=== PATIENT | female | born 1950 ===

== ENCOUNTER → 2017-08-16 | Outpatient (CLI) | payer OTHER ==
[~2017-08-16] MED LIST: Percocet 5-3251 EACH PO; Zofran Odt4 MG SL
[2017-08-16 14:35] LABS: Stool Occult Bld Immuno 1 Negative (NEGATIVE)
== END | disposition home or self-care (01) ==
LOC: OLS 08:07
PROVIDERS: Family Medicine
DX: Z12.11 Encounter for screening for malignant neoplasm of colon (principal); Z13.220 Encounter for screening for lipoid disorders; Z13.1 Encounter for screening for diabetes mellitus; R53.83 Other fatigue
CPT/HCPCS: 82274

== ENCOUNTER 2018-10-17 11:34 | Day surgery (SDC) | payer MEDICARE, OTHER ==
[~2018-10-17] VITALS: Ht 152.4 cm; Wt 54.9 kg
[2018-10-17] MEDS ORDERED: Fish Oil 10001000 MG PO (12:28)
== END 2018-10-17 13:45 | disposition home or self-care (01) ==
LOC: ORSCSDS 11:34
PROVIDERS: Internal Medicine Gastroenterology
PROC: 0DBL8ZX Excision of Transverse Colon, Via Natural or Artificial Opening Endoscopic, Diagnostic (ICD-10-PCS; principal; 2018-10-17 12:45)
DX: Z12.11 Encounter for screening for malignant neoplasm of colon (principal); D12.3 Benign neoplasm of transverse colon; K57.30 Diverticulosis of large intestine without perforation or abscess without bleeding; K64.8 Other hemorrhoids
CPT/HCPCS: 88305; J2405; J2704; J7120

== ENCOUNTER → 2022-04-01 | Outpatient (CLI) | payer MEDICARE, OTHER ==
[~2022-04-01] MED LIST changes: +Fish Oil 10001000 MG PO
== END ==
LOC: PLD 08:53 → LAB SHORT 08:53
DX: L57.0 Actinic keratosis (principal)
CPT/HCPCS: 88304; 88305